=== PATIENT | male | born 1960 | race Two or more races ===

== ENCOUNTER 2020-10-12 16:19 | Emergency (ER) | payer OTHER ==
[~2020-10-12] VITALS: Ht 177.8 cm; Wt 81.6 kg
[2020-10-12 16:31] VITALS: BP 147/92
--- NOTE | 2020-10-12 16:31 | NUR ---
ED Nurse Note: Pt walked in to ED c/o sorethroat and mild headache onset today. Per pt he has been exposed with someone who is covid positive. No SOB, on room air. Afebrile. Pt placed in isolation room.
--- NOTE | 2020-10-12 17:06 | Emergency Room Report ---
History of Present Illness General Chief Complaint: Flu Like Symptoms Source: Patient Present Illness HPI 59-year-old male with no signal past medical history here complaining of 2 days of headache and generalized body ache. Patient reports that his girlfriend was just diagnosed with Covid and they live together. Patient denies any cough and congestion shortness of breath. Denies any loss of taste and smell, diarrhea. Stating 97%, afebrile, heart rate within normal limits. Has not taken medication for symptom relief. Otherwise stable. Allergies: Coded Allergies: No Known Allergies (Unverified , 10/12/20) COVID-19 Screening Contact w/high risk pt: Yes Experienced COVID-19 symptoms?: Yes COVID-19 Testing performed THERMOMETER TESTER: No Patient History Past Medical History: see triage record Past Surgical History: none Pertinent Family History: none Immunizations: UTD Reviewed Nursing Documentation: PMH: Agreed; PSxH: Agreed Nursing Documentation-PMH Past Medical History: No Stated History Review of Systems All Other Systems: negative except mentioned in HPI Physical Exam Vital Signs Date Time Temp Pulse Resp B/P (MAP) Pulse Ox O2 Delivery O2 Flow Rate FiO2 10/12/20 16:21 97.9 61 17 147/92 (110) 96 Room Air Sp02 EP Interpretation: reviewed, normal General Appearance: no apparent distress, alert, GCS 15, non-toxic Head: normocephalic, atraumatic Eyes: bilateral eye normal inspection, bilateral eye PERRL ENT: hearing grossly normal, no angioedema, normal voice Neck: supple Respiratory: no respiratory distress, no retraction, no accessory muscle use Cardiovascular #1: regular rate, rhythm Gastrointestinal: soft Genitourinary: no CVA tenderness Musculoskeletal: back normal, gait/station normal Neurologic: alert, motor strength/tone normal, oriented x3, sensory intact, responsive, speech normal Psychiatric: judgement/insight normal, memory normal, mood/affect normal, no suicidal/homicidal ideation Skin: no rash Lymphatic: no adenopathy Medical Decision Making PA Attestation ALL Diagnosis and treatment plan reviewed and discussed with my supervising physician Dr. Mack Diagnostic Impression: Primary Impression: Viral syndrome ER Course 59-year-old male with no signal past medical history here complaining of 2 days of headache and generalized body ache. Patient reports that his girlfriend was just diagnosed with Covid and they live together. Patient denies any cough and congestion shortness of breath. Denies any loss of taste and smell, diarrhea. Stating 97%, afebrile, heart rate within normal limits. Has not taken medication for symptom relief. Otherwise stable. Ddx considered but are not limited to: strep pharyngitis, URI, tonsillitis, peritonsillar abscess, influneza, coronavirus Vital signs: are WNL, pt. is afebrile H&PE are most consistent with: Suspected coronavirus ORDERS: Tylenol, ED INTERVENTIONS: None required at this time. Advised patient to follow primary doctor, quarantine for 14 days, give a school note for 14 days, also with patient to get tested for Covid, if worsening symptoms return to the emergency room DISCHARGE: At this time pt. is stable for d/c to home. Will provide printed patient care instructions, and any necessary prescriptions. Care plan and follow up instructions have been discussed with the patient prior to discharge. Chest X-Ray Diagnostic Results Chest X-Ray Diagnostic Results : Chest X-Ray Ordered: Yes # of Views/Limited/Complete: 1 View Indication: Other EP Interpretation: Yes PA Xray: Interpretation reviewed, by supervising MD, and agrees with findings. Interpretation: no consolidation, no effusion, no pneumothorax Impression: No acute disease Electronically Signed by: Amanda Vargas PA-C Last Vital Signs Date Time Temp Pulse Resp B/P (MAP) Pulse Ox O2 Delivery O2 Flow Rate FiO2 10/12/20 16:31 97.9 61 17 147/92 96 Room Air Disposition: HOME, SELF-CARE Condition: Stable Scripts Acetaminophen* (TYLENOL EXTRA STRENGTH*) 500 Mg Tablet 500 MG ORAL Q8H PRN for Prn Headache/Temp > 101, #30 TAB 0 Refills Prov: Amanda Crandall 10/12/20 Patient Instructions: Upper Respiratory Infection, Adult, [id number] Additional Instructions: Take medication as directed, follow-up with your primary care provider, worsening symptoms return to the emergency room also quarantine for 10 to 14 days. Amanda Crandall Oct 12, 2020 17:06
[2020-10-12] MEDS ORDERED: TYLENOL EXTRA500 MG ORAL (17:07)
[2020-10-12 17:55] VITALS: BP 132/78
--- NOTE | 2020-10-12 17:55 | NUR ---
ER DISCHARGE NOTE: Patient is cleared to be discharged per ERMD, pt is aox4, on room air, with stable vital signs. pt was given dc and prescription instructions, pt was able to verbalize understanding, pt id band removed. pt is able to ambulate with steady gait. pt took all belongings.
--- NOTE | 2020-10-12 18:22 | Diagnostic Imaging Report ---
Indication: Shortness of breath Technique: One view of the chest Comparison: none Findings: Lungs and pleural spaces are clear. Heart size is normal. Impression: No acute process
== END 2020-10-12 17:55 | disposition home or self-care (01) ==
LOC: EMR 16:50
DX: B34.9 Viral infection, unspecified (principal); R51.9 Headache, unspecified
CPT/HCPCS: 71045; Z7502; 99283